=== PATIENT | male | born 1965 | race Caucasian/White ===

== ENCOUNTER 2017-07-22 22:24 | Emergency (ER) | payer MEDICAID, OTHER ==
[~2017-07-22] VITALS: Ht 182.9 cm; Wt 95.3 kg
[2017-07-22] MEDS ORDERED: TETanus/Pertussis (Acell)/Diphther VAC/PF (Tdap-Adult) 0.5ml syringe IM ONE (23:15)
[2017-07-22] MEDS ORDERED: bacitracin 15gm ointment TP ONE (23:15)
[2017-07-22] MEDS ORDERED: LIDOcaine 1% (10mg/ml)/PF 5ml amp IJ ONE (23:15)
[2017-07-22] MEDS ORDERED: LIDOcaine 1% 30ml vial IJ STA (23:28)
[2017-07-23 00:46] VITALS: BP 104/72
== END 2017-07-23 00:45 | disposition home or self-care (01) ==
LOC: ER 22:26
DX: S01.111A Laceration without foreign body of right eyelid and periocular area, initial encounter (principal); S09.90XA Unspecified injury of head, initial encounter; Z88.0 Allergy status to penicillin; Z88.2 Allergy status to sulfonamides; Z59.0 Homelessness; Z86.19 Personal history of other infectious and parasitic diseases; Y09 Assault by unspecified means; Y93.89 Activity, other specified; Y92.89 Other specified places as the place of occurrence of the external cause; Y99.8 Other external cause status
CPT/HCPCS: 12011; 70450; 90471; 90715; 99284; J3490

== ENCOUNTER 2017-07-30 14:24 | Emergency (ER) | payer MEDICAID ==
[~2017-07-30] VITALS: Ht 182.9 cm; Wt 95.2 kg
[2017-07-30 14:34] VITALS: BP 132/75
== END 2017-07-30 14:38 | disposition home or self-care (01) ==
LOC: ER 14:25
DX: S01.111D Laceration without foreign body of right eyelid and periocular area, subsequent encounter (principal); F15.90 Other stimulant use, unspecified, uncomplicated; X58.XXXD Exposure to other specified factors, subsequent encounter; Z88.0 Allergy status to penicillin; Z88.2 Allergy status to sulfonamides; Z59.0 Homelessness; Z60.2 Problems related to living alone; Z56.0 Unemployment, unspecified
CPT/HCPCS: 99281

== ENCOUNTER 2017-08-10 15:35 | Emergency (ER) | payer MEDICAID ==
[~2017-08-10] VITALS: Ht 182.9 cm; Wt 93.0 kg
[2017-08-10] MEDS ORDERED: LIDOcaine 1.5% w/epinephrine 1:200,000 5ml ampul IJ ONE (17:30)
[2017-08-10] MEDS ORDERED: BUPIVAcaine/PF 2.5 mg/ml (0.25%) 30ml vial IJ ONE (17:45)
[2017-08-10] MEDS ORDERED: TETanus/Pertussis (Acell)/Diphther VAC/PF (Tdap-Adult) 0.5ml syringe IM ONE (17:45)
[2017-08-10 18:39] VITALS: BP 129/92
== END 2017-08-10 18:41 | disposition home or self-care (01) ==
LOC: ER 15:37
DX: S01.511A Laceration without foreign body of lip, initial encounter (principal); F11.10 Opioid abuse, uncomplicated; Z60.2 Problems related to living alone; Z59.0 Homelessness; Z56.0 Unemployment, unspecified; Z86.19 Personal history of other infectious and parasitic diseases; Z88.2 Allergy status to sulfonamides; Z88.0 Allergy status to penicillin; W22.8XXA Striking against or struck by other objects, initial encounter; Y93.89 Activity, other specified; Y92.89 Other specified places as the place of occurrence of the external cause; Y99.8 Other external cause status
CPT/HCPCS: 40650; 99284; A6449; J3490; 12011

== ENCOUNTER 2017-08-12 10:01 | Emergency (ER) | payer MEDICAID ==
[~2017-08-12] VITALS: Ht 188 cm; Wt 92.3 kg
[2017-08-12 11:33] VITALS: BP 134/96
== END 2017-08-12 11:34 | disposition home or self-care (01) ==
LOC: ER 10:01
DX: S01.511D Laceration without foreign body of lip, subsequent encounter (principal); F11.10 Opioid abuse, uncomplicated; Z59.0 Homelessness; Z60.2 Problems related to living alone; Z56.0 Unemployment, unspecified; X58.XXXD Exposure to other specified factors, subsequent encounter
CPT/HCPCS: 99281

== ENCOUNTER 2017-08-16 07:47 | Emergency (ER) | payer MEDICAID ==
[~2017-08-16] VITALS: Ht 182.9 cm; Wt 95.0 kg
[2017-08-16 07:49] VITALS: BP 125/88
== END 2017-08-16 08:56 | disposition home or self-care (01) ==
LOC: ER 07:48
DX: S01.511D Laceration without foreign body of lip, subsequent encounter (principal); F11.10 Opioid abuse, uncomplicated; R42 Dizziness and giddiness; Z88.0 Allergy status to penicillin; Z88.2 Allergy status to sulfonamides; Z59.0 Homelessness; Z56.0 Unemployment, unspecified; Z60.2 Problems related to living alone; X58.XXXD Exposure to other specified factors, subsequent encounter
CPT/HCPCS: 99284

== ENCOUNTER 2017-09-07 17:56 | Emergency (ER) | payer MEDICAID ==
[~2017-09-07] VITALS: Ht 182.9 cm; Wt 92.0 kg
[2017-09-07 19:45] LABS: BASOPHILS % (AUTO) 0.4 % (0-1); EOSINOPHILS # (AUTO) 0.2 X10'3 (0-0.9); EOSINOPHILS % (AUTO) 2.5 % (0-6); HEMATOCRIT 45.8 % (42.0-52.0); HEMOGLOBIN 15.9 g/dl (14.0-17.9); LYMPHOCYTES # (AUTO) 1.7 X10'3 (1.1-4.8); LYMPHOCYTES % (AUTO) 26.4 % (21-51); MEAN CORPUSCULAR HEMOGLOBIN 31.8 PG (27.0-31.0); MEAN CORPUSCULAR HGB CONC 34.7 % (33.0-36.5); MEAN CORPUSCULAR VOLUME 91.6 FL (78-98); MEAN PLATELET VOLUME 9.9 FL (7.4-10.4); MONOCYTES # (AUTO) 0.5 X10'3 (0-0.9); MONOCYTES % (AUTO) 7.7 % (2-12); NEUTROPHILS # (AUTO) 3.9 X10'3 (1.8-7.7); PLATELET COUNT 125 X10'3 (140-440); RED CELL DISTRIBUTION WIDTH 12.2 % (11.5-14.5); WHITE BLOOD COUNT 6.3 X10'3 (4.5-11.0)
[2017-09-07 19:56] LABS: INR 1.1 INR; PARTIAL THROMBOPLASTIN TIME 28 SECONDS (22-32); PROTHROMBIN TIME 11.4 SECONDS (9.0-12.0)
[2017-09-07 20:11] LABS: ALANINE AMINOTRANSFERASE 47 U/L (12-78); ALBUMIN 3.9 G/DL (3.4-5.0); ALKALINE PHOSPHATASE 74 IU/L (46-116); ANION GAP 13 (8-16); ASPARTATE AMINO TRANSFERASE 72 U/L (10-37); BILIRUBIN,TOTAL 1.5 MG/DL (0.1-1.0); BLOOD UREA NITROGEN 17 MG/DL (7-18); BUN/CREATININE RATIO 16.8 (5.4-32.0); CALCIUM 8.6 MG/DL (8.5-10.1); CHLORIDE 103 MMOL/L (99-107); CREATININE 1.01 MG/DL (0.60-1.10); GLUCOSE 112 MG/DL (70-104); POTASSIUM 3.6 MMOL/L (3.5-5.1); SODIUM 141 MMOL/L (135-145); TOTAL CARBON DIOXIDE 25.2 MMOL/L (24-32); TOTAL PROTEIN 7.8 G/DL (6.4-8.2); eGFR 78 ML/MIN
[2017-09-07] MEDS ORDERED: ACYC200C PO (20:33)
[2017-09-07] MEDS ORDERED: DOXY100C2 PO (20:34)
[2017-09-07] MEDS ORDERED: ciprofloxacin 250mg tablet PO ONE (20:35)
[2017-09-07 20:52] VITALS: BP 125/65
== END 2017-09-07 20:56 | disposition home or self-care (01) ==
LOC: ER 17:57
DX: K12.1 Other forms of stomatitis (principal); K13.70 Unspecified lesions of oral mucosa; F15.10 Other stimulant abuse, uncomplicated; F11.10 Opioid abuse, uncomplicated; Z98.890 Other specified postprocedural states; Z88.0 Allergy status to penicillin; Z59.0 Homelessness; Z88.2 Allergy status to sulfonamides; Z56.0 Unemployment, unspecified; Z60.2 Problems related to living alone
CPT/HCPCS: 36415; 80053; 85025; 85610; 85730; 99284

== ENCOUNTER 2017-10-04 08:55 | Emergency (ER) | payer MEDICAID ==
[~2017-10-04] VITALS: Ht 190.5 cm; Wt 99.1 kg
[~2017-10-04 08:55] MED LIST: CLIN-80 PO; IBUP-1986 PO
[2017-10-04 09:24] VITALS: BP 127/95
[2017-10-04] MEDS ORDERED: ketorolac trometh inj. 60 MG/2 ML VIAL IM ONE (09:50)
== END 2017-10-04 10:14 | disposition home or self-care (01) ==
LOC: ER 08:56
DX: M25.561 Pain in right knee (principal); F15.10 Other stimulant abuse, uncomplicated; F11.10 Opioid abuse, uncomplicated; Z86.19 Personal history of other infectious and parasitic diseases; Z98.890 Other specified postprocedural states; Z60.2 Problems related to living alone; Z59.0 Homelessness; Z56.0 Unemployment, unspecified; Z88.0 Allergy status to penicillin; Z88.2 Allergy status to sulfonamides; Z79.899 Other long term (current) drug therapy
CPT/HCPCS: 96372; 99283; J1885

== ENCOUNTER 2017-12-07 14:13 | Emergency (ER) | payer MEDICAID ==
[~2017-12-07] VITALS: Ht 182.9 cm; Wt 94.5 kg
[~2017-12-07 14:13] MED LIST changes: -CLIN-80 PO
[2017-12-07 14:20] VITALS: BP 162/107
[2017-12-07] MEDS ORDERED: ketorolac tromethamine 15mg/ml inj. IM ONE (15:25)
[2017-12-07] MEDS ORDERED: diphenhydrAMINE 50 mg/ml inj IM ONE (15:25)
== END 2017-12-07 16:00 | disposition home or self-care (01) ==
LOC: ER 14:13
DX: F41.9 Anxiety disorder, unspecified (principal); F15.90 Other stimulant use, unspecified, uncomplicated; F11.90 Opioid use, unspecified, uncomplicated; Z88.0 Allergy status to penicillin; Z88.2 Allergy status to sulfonamides; Z79.899 Other long term (current) drug therapy; Z56.0 Unemployment, unspecified; Z59.0 Homelessness; Z60.2 Problems related to living alone
CPT/HCPCS: 93005; 96372; 99284; J1200; J1885; 99285

== ENCOUNTER 2017-12-20 07:24 | Day surgery (SDC) | payer MEDICAID ==
[~2017-12-20] VITALS: Ht 182.9 cm; Wt 95.5 kg
[2017-12-20 07:38] VITALS: BP 127/88
[2017-12-20] MEDS ORDERED: NAPR-56 PO (07:48)
[2017-12-20] MEDS ORDERED: TRAM50TA2 PO (07:48)
[2017-12-20] MEDS ORDERED: fentaNYL/PF 50MCG/1 ML 2ML syringe ONE (08:04)
[2017-12-20] MEDS ORDERED: MIDAZolam 5mg/5ml vial ONE (08:05)
[2017-12-20] MEDS ORDERED: LIDOcaine Viscous 15ml cup ONE (08:05)
[2017-12-20 09:55] VITALS: BP 122/90
[2017-12-20 10:05] VITALS: BP 124/80
[2017-12-20 10:15] VITALS: BP 126/65
== END 2017-12-20 10:20 | disposition home or self-care (01) ==
LOC: GI LAB 07:24
PROVIDERS: ATTEND Internal Medicine Gastroenterology
DX: K29.50 Unspecified chronic gastritis without bleeding (principal); K20.8 Other esophagitis; I85.00 Esophageal varices without bleeding; K31.89 Other diseases of stomach and duodenum; K76.6 Portal hypertension; B96.81 Helicobacter pylori [H. pylori] as the cause of diseases classified elsewhere; F17.210 Nicotine dependence, cigarettes, uncomplicated; B19.20 Unspecified viral hepatitis C without hepatic coma; F41.8 Other specified anxiety disorders; F15.90 Other stimulant use, unspecified, uncomplicated; Z79.891 Long term (current) use of opiate analgesic; Z79.899 Other long term (current) drug therapy; Z87.11 Personal history of peptic ulcer disease; Z72.89 Other problems related to lifestyle; Z88.2 Allergy status to sulfonamides; Z88.0 Allergy status to penicillin; Z98.890 Other specified postprocedural states
CPT/HCPCS: 43239; 99152; J2250; J3010; J7030; A4620; G0500

== ENCOUNTER 2018-04-03 22:30 | Emergency (ER) | payer MEDICAID ==
[~2018-04-03] VITALS: Ht 182.9 cm; Wt 90.0 kg
[~2018-04-03 22:30] MED LIST changes: -IBUP-1986 PO; +LORA-269 PO; +NAPR-56 PO; +TRAM50TA2 PO
[2018-04-03 23:18] LABS: BASOPHILS % (AUTO) 0.1 % (0-1); EOSINOPHILS % (AUTO) 0 % (0-6); HEMATOCRIT 45.6 % (42.0-52.0); HEMOGLOBIN 15.6 g/dl (14.0-17.9); LYMPHOCYTES # (AUTO) 0.9 X10'3 (1.1-4.8); LYMPHOCYTES % (AUTO) 8.1 % (21-51); MEAN CORPUSCULAR HEMOGLOBIN 31.9 PG (27.0-31.0); MEAN CORPUSCULAR HGB CONC 34.1 % (33.0-36.5); MEAN CORPUSCULAR VOLUME 93.6 FL (78-98); MEAN PLATELET VOLUME 9.5 FL (7.4-10.4); MONOCYTES # (AUTO) 0.3 X10'3 (0-0.9); MONOCYTES % (AUTO) 2.9 % (2-12); NEUTROPHILS # (AUTO) 9.8 X10'3 (1.8-7.7); NEUTROPHILS % (AUTO) 88.9 % (42-75); PLATELET COUNT 153 X10'3 (140-440); RED BLOOD COUNT 4.88 X10'6 (4.70-6.10); RED CELL DISTRIBUTION WIDTH 13.9 % (11.5-14.5)
[2018-04-03] MEDS ORDERED: iohexol 300mg/ml 100ml inj. ONE (23:23)
[2018-04-03 23:30] LABS: INR 1.1 INR; PARTIAL THROMBOPLASTIN TIME 26 SECONDS (22-32); PROTHROMBIN TIME 11.4 SECONDS (9.0-12.0)
[2018-04-04 00:25] LABS: URINE AMPHETAMINE SCREEN POSITIVE (Neg); URINE BARBITUATE SCREEN NEGATIVE (Neg); URINE BENZODIAZEPINES SCREEN NEGATIVE (Neg); URINE CANNABINOID SCREEN NEGATIVE (Neg); URINE COCAINE SCREEN NEGATIVE (Neg); URINE METHADONE SCREEN NEGATIVE (Neg); URINE OPIATE SCREEN NEGATIVE (Neg); URINE PHENCYCLIDINE SCREEN NEGATIVE (Neg)
[2018-04-04] MEDS ORDERED: ondansetron/PF 4mg/2ml inj IV ONE (00:25)
[2018-04-04] MEDS ORDERED: morphine 4 MG/ML inj SYRINge IV ONE (00:25)
[2018-04-04 00:42] LABS: ALANINE AMINOTRANSFERASE 29 U/L (12-78); ALBUMIN 4.3 G/DL (3.4-5.0); ALBUMIN/GLOBULIN RATIO 1.2 (1.1-1.5); ALKALINE PHOSPHATASE 58 IU/L (46-116); ANION GAP 13 (8-16); ASPARTATE AMINO TRANSFERASE 26 U/L (10-37); BILIRUBIN,TOTAL 0.6 MG/DL (0.1-1.0); BLOOD UREA NITROGEN 15 MG/DL (7-18); BUN/CREATININE RATIO 14.6 (5.4-32.0); CHLORIDE 106 MMOL/L (99-107); CREATININE 1.03 MG/DL (0.60-1.10); GLUCOSE 118 MG/DL (70-104); POTASSIUM 3.9 MMOL/L (3.5-5.1); SODIUM 143 MMOL/L (135-145); TOTAL PROTEIN 7.9 G/DL (6.4-8.2); eGFR 76 ML/MIN
[2018-04-04 01:18] VITALS: BP 158/71
== END 2018-04-04 01:41 | disposition short-term general hospital (02) ==
LOC: ER 22:30
DX: S01.431A Puncture wound without foreign body of right cheek and temporomandibular area, initial encounter (principal); S00.83XA Contusion of other part of head, initial encounter; F15.90 Other stimulant use, unspecified, uncomplicated; F11.90 Opioid use, unspecified, uncomplicated; Z59.0 Homelessness; Z56.0 Unemployment, unspecified; Z98.890 Other specified postprocedural states; Z88.0 Allergy status to penicillin; Z88.2 Allergy status to sulfonamides; Z79.899 Other long term (current) drug therapy; Y04.0XXA Assault by unarmed brawl or fight, initial encounter; Y93.89 Activity, other specified; Y92.89 Other specified places as the place of occurrence of the external cause; Y99.9 Unspecified external cause status
CPT/HCPCS: 36415; 70450; 70487; 71045; 80053; 80305; 85025; 85610; 85730; 96374; 96375; 99285; A6449; J2270; J2405; Q9967

== ENCOUNTER 2018-04-14 00:36 | Emergency (ER) | payer MEDICAID ==
[~2018-04-14] VITALS: Ht 182.9 cm; Wt 90.9 kg
[2018-04-14 00:43] VITALS: BP 164/90
[2018-04-14] MEDS ORDERED: LORazepam 1 MG tablet PO ONE (01:05)
== END 2018-04-14 01:24 | disposition home or self-care (01) ==
LOC: ER 00:37
DX: T39.391A Poisoning by other nonsteroidal anti-inflammatory drugs [NSAID], accidental (unintentional), initial encounter (principal); F41.9 Anxiety disorder, unspecified; F29 Unspecified psychosis not due to a substance or known physiological condition; F15.90 Other stimulant use, unspecified, uncomplicated; F11.90 Opioid use, unspecified, uncomplicated; Z88.0 Allergy status to penicillin; Z88.2 Allergy status to sulfonamides; Z79.899 Other long term (current) drug therapy; Z56.0 Unemployment, unspecified; Z59.0 Homelessness; Z60.2 Problems related to living alone; Y92.89 Other specified places as the place of occurrence of the external cause
CPT/HCPCS: 93005; 99283; 99284

== ENCOUNTER 2018-11-21 18:38 | Emergency (ER) | payer MEDICAID ==
[~2018-11-21] VITALS: Ht 182.9 cm; Wt 91.2 kg
[2018-11-21 18:54] VITALS: BP 120/85
--- NOTE | 2018-11-21 19:56 | NUR ---
lab is at bedside
[2018-11-21 20:16] LABS: BASOPHILS % (AUTO) 0.3 % (0-1); EOSINOPHILS # (AUTO) 0.1 X10'3 (0-0.9); EOSINOPHILS % (AUTO) 1.3 % (0-6); HEMATOCRIT 41.9 % (42.0-52.0); HEMOGLOBIN 14.4 g/dl (14.0-17.9); LYMPHOCYTES % (AUTO) 19.1 % (21-51); MEAN CORPUSCULAR HEMOGLOBIN 32.3 PG (27.0-31.0); MEAN CORPUSCULAR HGB CONC 34.3 g/dL (33.0-36.5); MEAN CORPUSCULAR VOLUME 94.1 FL (78-98); MEAN PLATELET VOLUME 9.7 FL (7.4-10.4); MONOCYTES # (AUTO) 0.6 X10'3 (0-0.9); NEUTROPHILS # (AUTO) 3.5 X10'3 (1.8-7.7); NEUTROPHILS % (AUTO) 68.3 % (42-75); PLATELET COUNT 103 X10'3 (140-440); RED BLOOD COUNT 4.45 X10'6 (4.70-6.10); RED CELL DISTRIBUTION WIDTH 13.4 % (11.5-14.5); WHITE BLOOD COUNT 5.1 X10'3 (4.5-11.0)
[2018-11-21 20:27] LABS: ALANINE AMINOTRANSFERASE 47 U/L (12-78); ALBUMIN 3.1 G/DL (3.4-5.0); ALBUMIN/GLOBULIN RATIO 0.9 (1.1-1.5); ALKALINE PHOSPHATASE 67 IU/L (46-116); ANION GAP 8 (8-16); ASPARTATE AMINO TRANSFERASE 47 U/L (10-37); BILIRUBIN,TOTAL 0.3 MG/DL (0.1-1.0); BLOOD UREA NITROGEN 15 MG/DL (7-18); BUN/CREATININE RATIO 14.2 (5.4-32.0); CALCIUM 8.1 MG/DL (8.5-10.1); CHLORIDE 106 MMOL/L (99-107); CREATININE 1.06 MG/DL (0.60-1.10); GLUCOSE 127 MG/DL (70-104); POTASSIUM 4.1 MMOL/L (3.5-5.1); SODIUM 139 MMOL/L (135-145); TOTAL CARBON DIOXIDE 25.2 MMOL/L (24-32); TOTAL PROTEIN 6.5 G/DL (6.4-8.2); eGFR 73 ML/MIN
[2018-11-21] MEDS ORDERED: CEPH-571 PO (20:34)
[2018-11-21] MEDS ORDERED: DOXY100C43 PO (20:34)
[2018-11-21] MEDS ORDERED: NAPR-56 PO (20:34)
[2018-11-21] MEDS ORDERED: ACET-2119 PO (20:59)
== END 2018-11-21 20:57 | disposition home or self-care (01) ==
LOC: ER 18:39
DX: L03.113 Cellulitis of right upper limb (principal); F15.90 Other stimulant use, unspecified, uncomplicated; F11.90 Opioid use, unspecified, uncomplicated; Z86.19 Personal history of other infectious and parasitic diseases; Z98.890 Other specified postprocedural states; Z56.0 Unemployment, unspecified; Z59.0 Homelessness; Z88.0 Allergy status to penicillin; Z88.2 Allergy status to sulfonamides; Z79.899 Other long term (current) drug therapy
CPT/HCPCS: 36415; 73130; 80053; 85025; 99284